=== PATIENT | male | born 1955 | race Caucasian/White ===

== ENCOUNTER 2017-08-06 09:48 | Outpatient (CLI) | payer MEDICARE, OTHER ==
[~2017-08-06 09:48] MED LIST: ACIPHEX 20 MG T20 MG PO; ASPIRIN FOR CHI81 MG PO; ASTEPRO205.5 MCG/ NS; BACLOFEN20 MG PO; CORTISPORIN OP; COUMADIN10 MG PO; COUMADIN7.5 MG PO; FENOGLIDE40 MG PO; GABAPENTIN 100100 MG; GABAPENTIN300 MG PO; HYDROCODONE BIT1 T39 PO; KEFLEX 500MG.500 MG PO; LIDODERM1 EACH TP; LOSARTAN POTASS25 MG PO; MECLIZINE HYDRO25 M2 PO; METFORMIN 500M500 M1; METFORMIN 500M500 M1 PO; NITROLINGU0.4 MG/ACT SL; NORCO 325 MG-51 TAB PO; PRAVACHOL 40MG40 MG PO; PRINIVIL5 MG PO; SINGULAIR 10 MG10 MG PO; SYMBICORT 10.10.2 M1; SYMBICORT1 AE1 IH; VENTOLIN H0.09 MG/AC IH; VITAMIN D400 UNI1; [UNRECOGNIZED DRUG - OTHER] NS
== END 2017-08-06 11:47 ==
LOC: ACC 09:48
DX: I48.91 Unspecified atrial fibrillation (principal); Z79.01 Long term (current) use of anticoagulants; Z51.81 Encounter for therapeutic drug level monitoring
CPT/HCPCS: G0463

== ENCOUNTER → 2017-09-17 | Outpatient (CLI) | payer MEDICARE, OTHER ==
--- NOTE | 2017-09-17 15:25 | CARDIOVASCULAR REPORT ---
"Cerebrovascular Exam Indications: 780.4 Vertigo. IMPRESSIONS 1. The bilateral vertebral arteries are patent with normal antegrade flow. 2. Study suggests 20-49% stenosis involving the right internal carotid artery and the left internal carotid artery, lower end of scale. Carotid duplex study. Complete study and Doppler flow study including spectral analysis, color and mccollum scale imaging. Height: Height: 190.5cm. Height: 75in. Weight: Weight: 111.1kg. Weight: 244.5lb. Body mass index: BMI: 30.6kg/m^2. Body surface area: BSA: 2.45m^2. Location: Vascular laboratory. Patient status: Outpatient. Tables: Arterial flow: + +--------+--------+ |Location |V sys |V ed | + +--------+--------+ |Right CCA - proximal|98.2cm/s|25.9cm/s| + +--------+--------+ |Right CCA - distal |88cm/s |25.1cm/s| + +--------+--------+ |Right ECA |163cm/s |--------| + +--------+--------+ |Right ICA - proximal|104cm/s |28.3cm/s| + +--------+--------+ |Right ICA - mid |89.9cm/s|31.4cm/s| + +--------+--------+ |Right ICA - distal |81.2cm/s|30.6cm/s| + +--------+--------+ |Right vertebral |59.7cm/s|--------| + +--------+--------+ |Left CCA - proximal |134cm/s |25.1cm/s| + +--------+--------+ |Left CCA - distal |93.5cm/s|23.6cm/s| + +--------+--------+ |Left ECA |135cm/s |--------| + +--------+--------+ |Left ICA - proximal |98.2cm/s|28.3cm/s| + +--------+--------+ |Left ICA - mid |117cm/s |43.2cm/s| + +--------+--------+ |Left ICA - distal |99.8cm/s|37.7cm/s| + +--------+--------+ |Left vertebral |51.9cm/s|--------| + +--------+--------+ Velocity ratios: + + + + + + | |Right, V sys|Right, V ed|Left, V sys|Left, V ed| + + + + + + |Max ICA/dist CCA|1.18 |1.25 |1.25 |1.83 | + + + + + + (Report amended ) Electronically signed by: Cristian Curiel [id number]"
== END ==
LOC: RT 12:58
DX: R42 Dizziness and giddiness (principal)

== ENCOUNTER 2017-09-21 09:53 | Outpatient (CLI) | payer MEDICARE, OTHER ==
[2017-09-24] MEDS ORDERED: HYDROCODONE BIT1 T39 PO (12:17)
== END 2017-09-21 15:48 ==
LOC: ACC 09:53
DX: I48.91 Unspecified atrial fibrillation (principal); Z79.01 Long term (current) use of anticoagulants; Z51.81 Encounter for therapeutic drug level monitoring
CPT/HCPCS: G0463

== ENCOUNTER 2017-11-02 10:23 | Outpatient (CLI) | payer MEDICARE, OTHER ==
[2017-11-12] MEDS ORDERED: TIZANIDINE4 MG (10:25)
[2017-11-12] MEDS ORDERED: NORCO1 TAB PO (14:05)
[2017-11-12] MEDS ORDERED: GABAPENTIN300 M1 PO (14:08)
== END 2017-11-02 16:02 ==
LOC: ACC 10:23
DX: I48.91 Unspecified atrial fibrillation (principal); Z79.01 Long term (current) use of anticoagulants; Z51.81 Encounter for therapeutic drug level monitoring
CPT/HCPCS: G0463

== ENCOUNTER → 2017-11-07 | Outpatient (CLI) | payer MEDICARE, OTHER ==
[~2017-11-07] MED LIST changes: +GABAPENTIN300 M1 PO; +NORCO1 TAB PO; +TIZANIDINE4 MG
[2017-11-07 10:33] LABS: BUN 15 mg/dL (7-18)
[2017-11-07 10:54] LABS: GFR (ESTIMATED) 75 ML/MIN (>60)
== END ==
LOC: LAB 08:18
PROVIDERS: Family Medicine
DX: E11.9 Type 2 diabetes mellitus without complications (principal); I10 Essential (primary) hypertension